=== PATIENT | female | born 2000 | race Caucasian/White ===

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

== ENCOUNTER 2023-02-18 08:38 | Emergency (ER) | payer OTHER ==
[~2023-02-18] VITALS: Ht 160 cm; Wt 53.5 kg
[~2023-02-18 08:38] MED LIST: DUI500 PO; TUSICOF CAPLET1 EACH PO; ZITHROMAX500 MG PO
[2023-02-18 10:51] LABS: HEMATOCRIT 35.2 % (36.0-45.00); HEMOGLOBIN 11.5 g/dL (12.0-15.00); MEAN CELL VOLUME 84.5 fL (80.00-100.00); MEAN CORPUSCULAR HEMOGLOBIN 27.6 pg (27.00-32.0); MEAN CORPUSCULAR HGB CONC 32.7 g/dl (32.0-36.0); PLATELET COUNT 307 K/uL (150-450); RED BLOOD COUNT 4.16 M/uL (4.00-6.00); RED CELL DISTRIBUTION WIDTH 13.7 % (11.5-14.5)
[2023-02-18 11:02] LABS: URINE APPEARANCE Clear; URINE BILIRRUBIN Negative (NEGATIVE); URINE BLOOD Negative; URINE COLOR Yellow; URINE GLUCOSE Negative (NEGATIVE); URINE LEUKOCYTE Trace; URINE NITRATE Negative; URINE PROTEIN Negative (NEGATIVE); URINE UROBILINOGEN 0.2 E.U./dl
[2023-02-18 11:03] LABS: URINE BACTERIA 264.5 uL (0.0-1933); URINE EPITHELIAL CELLS 26.4 uL (0.0-38.8); URINE WBC 16.2 uL (0.0-23.2)
[2023-02-18 11:21] LABS: ALBUMIN 4.2 gm/dL (3.4-5.0); BILIRUBIN TOTAL 0.38 mg/dL (0.3-1.2); CALCIUM 9.3 mg/dL (8.5-10.1); CREATININE SERUM 0.49 mg/dL (0.55-1.02); GFR 159.42; GLOBULINA 3.5 G/DL (2.4-3.5); POTASSIUM 4.06 mEq/L (3.5-5.1); TOTAL PROTEIN 7.7 gm/dL (6.4-8.2)
[2023-02-18] MEDS ORDERED: ANTIVERT25 M2 PO (14:14)
== END 2023-02-18 14:21 | disposition home or self-care (01) ==
LOC: ER 08:39
PROVIDERS: General Practice
DX: R42 Dizziness and giddiness (principal); R11.0 Nausea

== ENCOUNTER 2024-06-20 19:15 | Emergency (ER) | payer OTHER ==
[~2024-06-20] VITALS: Ht 160 cm; Wt 56.7 kg
[~2024-06-20 19:15] MED LIST changes: +ANTIVERT25 M2 PO
[2024-06-20] MEDS ORDERED: KETOROLAC TROMETHAMINE 60 MG VIAL IM ONE ×2 (21:30→21:33)
[2024-06-20 21:52] LABS: HEMATOCRIT 36.1 % (36.0-45.00); HEMOGLOBIN 11.9 g/dL (12.0-15.00); MEAN CELL VOLUME 83.1 fL (80.00-100.00); MEAN CORPUSCULAR HEMOGLOBIN 27.4 pg (27.00-32.0); PLATELET COUNT 303 K/uL (150-450); RED BLOOD COUNT 4.35 M/uL (4.00-6.00); RED CELL DISTRIBUTION WIDTH 14.4 % (11.5-14.5)
[2024-06-20 22:13] LABS: ALBUMIN 4.1 gm/dL (3.4-5.0); BILIRUBIN TOTAL 0.17 mg/dL (0.3-1.2); CALCIUM 9.3 mg/dL (8.5-10.1); CREATININE SERUM 0.47 mg/dL (0.55-1.02); GFR 165.7; GLOBULINA 3.8 G/DL (2.4-3.5); POTASSIUM 4.07 mEq/L (3.5-5.1); TOTAL PROTEIN 7.9 gm/dL (6.4-8.2)
[2024-06-20] MEDS ORDERED: AMOX-CLAV 875-1 EACH PO (22:27)
[2024-06-20] MEDS ORDERED: CEFTRIAXONE SODIUM 1,000 MG VIAL IM ONE (22:30)
[2024-06-20] MEDS ORDERED: CEFTRIAXONE SODIUM 1,000 MG VIAL ONE (22:31)
== END 2024-06-20 22:50 | disposition home or self-care (01) ==
LOC: ER 19:18
PROVIDERS: Preventive Medicine Public Health & General Preventive Medicine
DX: J02.8 Acute pharyngitis due to other specified organisms (principal); K29.70 Gastritis, unspecified, without bleeding
CPT/HCPCS: 36415; 96372; 99282; J0696; J1885

== ENCOUNTER 2024-10-19 07:44 | Outpatient (CLI) | payer OTHER ==
[~2024-10-19 07:44] MED LIST changes: +AMOX-CLAV 875-1 EACH PO
[2024-10-19 08:49] LABS: BASO % 0.5 % (0.1-1.2); EOS # 0.14 (0.04-0.54); EOS % 1.8 % (0.7-7.0); LYMPH # 1.97 (1.18-3.74); LYMPH % 25.7 % (19.3-53.1); MEAN PLATELET VOLUME 9.90 fl (9.4-12.4); MONO # 0.52 (0.24-0.82); MONO % 6.8 % (4.7-12.5); NEUT # 4.96 (1.56-6.13); NEUT % 64.8 % (34.0-71.1); RED CELL DISTRIBUTION WIDTH 12.9 % (11.6-14.4)
[2024-10-19 08:50] LABS: URINE APPEARANCE Cloudy; URINE BILIRRUBIN Negative (NEGATIVE); URINE BLOOD Small; URINE COLOR Yellow; URINE GLUCOSE Negative (NEGATIVE); URINE KETONE Negative (NEGATIVE); URINE LEUKOCYTE Large; URINE NITRATE Negative; URINE PROTEIN Trace (NEGATIVE); URINE UROBILINOGEN 0.2 E.U./dl
[2024-10-19 08:55] LABS: URINE BACTERIA 6506.2 uL (0.0-1933); URINE EPITHELIAL CELLS 57.8 uL (0.0-38.8); URINE RBC 7.9 uL (0.0-20.8); URINE WBC 1965.5 uL (0.0-23.2)
[2024-10-19 09:26] LABS: ALT/SGPT 17 U/L (12-78); AST/SGOT 11 U/L (15-37); BILIRUBIN TOTAL 0.35 mg/dL (0.3-1.2); BILIRUBIN,CONJUGATED < 0.10 mg/dL (0.0-0.2); BUN CREA RATIO 26 (7.0-25.0); CHOL HDL RATIO 2.0 (0-5.0); CREATININE SERUM 0.53 mg/dL (0.55-1.02); GFR 144.25; GLOBULINA 3.2 G/DL (2.4-3.5); GLUCOSE FASTING 84 mg/dL (65-100); HDL 72 mg/dl (40-60); LDL 59 mg/dl (0-130); OSMOLALITY SERUM 281 MOSM/KG (275-295); T4 FREE 0.94 NG/ML (0.76-1.46); TSH 0.922 uIU/mL (0.358-3.74); VLDL 11 (0-39)
[2024-10-19 09:40] LABS: URINE CAST 1.31 uL (0.0-1.40)
[2024-10-19 11:13] LABS: ob NEGATIVE (NEGATIVE)
[2024-10-20 09:08] LABS: CA 125 11.8 U/mL (0.0-38.1); CA 19-9 21.0 U/mL (0-35); ESTRADIOL SERUM 152.0 pg/mL (.); LEUTEINIZING HORMONE 27.9 mIU/mL (.)
[2024-10-20 11:12] LABS: ALPHA FETO PROTEIN 2.8 ng/mL (0.0-4.7)
[2024-10-21 17:11] LABS: T T 79.0 ng/dL (13-71); test free 4.1 pg/mL (0.0-4.2)
== END 2024-10-19 07:51 | disposition home or self-care (01) ==
LOC: LAB 07:44
DX: E03.8 Other specified hypothyroidism (principal); E04.2 Nontoxic multinodular goiter; E55.9 Vitamin D deficiency, unspecified; E11.9 Type 2 diabetes mellitus without complications; R73.03 Prediabetes; N91.5 Oligomenorrhea, unspecified; D64.9 Anemia, unspecified; E87.0 Hyperosmolality and hypernatremia; R10.10 Upper abdominal pain, unspecified; Z12.11 Encounter for screening for malignant neoplasm of colon

== ENCOUNTER 2024-10-19 08:47 | Outpatient (CLI) | payer OTHER | END 2024-10-19 08:51 | disposition home or self-care (01) | LOC: SONOGRAMA 08:47 | DX: K76.0 Fatty (change of) liver, not elsewhere classified (principal); K74.00 Hepatic fibrosis, unspecified ==

== ENCOUNTER 2024-10-24 07:55 | Outpatient (CLI) | payer OTHER | END 2024-10-24 08:00 | disposition home or self-care (01) | LOC: TOM 07:55 | DX: R10.10 Upper abdominal pain, unspecified (principal) ==

== ENCOUNTER 2024-10-26 08:36 | Outpatient (CLI) | payer OTHER | END 2024-10-26 08:37 | disposition home or self-care (01) | LOC: NUCLEAR 08:36 | DX: R49.0 Dysphonia (principal) ==